=== PATIENT | male | born 1945 | race Caucasian/White ===

== ENCOUNTER 2017-08-10 21:48 | Emergency (ER) | payer OTHER ==
[~2017-08-10] VITALS: Ht 157.5 cm; Wt 112.5 kg
[~2017-08-10 21:48] MED LIST: ACYC200 PO; ACYC5TO15G TOP; ACYC800 PO; ALBIPROI INH; ALBU90OI6 INH; AMOCLA875 PO; ASPI325 PO; ASPI325EC PO; ASPI81EC PO; ATEN50; ATEN50 PO; ATOR10 PO; AZIT250 PO; Aspir-Low81 MG PO; B-122500 MCG SL; BACL10 PO; BUME1 PO; BUME2 PO; Bactrim Ds Tab1 EACH PO; CEPH500 PO; CHOL10002 PO; CLIN150 PO; CLOP75 PO; CODACE30 PO; CYCL10 PO; DIAZ5 PO; FAMO20 PO; FURO20; FURO20 PO; FURO40 PO; Fluocinolone Ac15 G1 TP; HYDACE5 PO; HYDACE5325 PO; HYDACE7.5 PO; HYDCHL25 PO; HYDR1TAB94 PO; ISOMON30 PO; LEVFLO500 PO; LISI10; LISI20 PO; LISI5 PO; LOVA20 PO; LOVA40 PO; Lovastatin20 MG PO; METO100 PO; METO100ER PO; Metoprolol Tar100 MG PO; NAPR375 PO; NAPR500 PO; NITR.4SL SL; Norco 5-325 Ta1 EACH PO; OMEP20ER PO; OMEP40CA12 PO; OXYACE5T PO; OXYC5 PO; POTA10T PO; POTCHL10ER; PRED10 PO; PROCODE120 PO; Percocet 5-3251 EACH PO; RXCODACET PO; RXHYD5325 PO; RXOXYACE PO; RXPROM25 PO; SPIR25 PO; SULTRIDS PO; TRIA80TC TOP; Vitamin B-1250 MCG PO; Vitamin D2000 UNIT PO; WARF10 PO; WARF2.5 PO; WARF3 PO; [UNRECOGNIZED DRUG - REMARK]; [UNRECOGNIZED DRUG - REMARK]; [UNRECOGNIZED DRUG - SUPPLY]
== END 2017-08-11 00:08 | disposition left against medical advice (07) ==
LOC: ER 21:48
DX: Z53.21 Procedure and treatment not carried out due to patient leaving prior to being seen by health care provider (principal)

== ENCOUNTER 2018-04-16 18:01 | Emergency (ER) | payer OTHER ==
[~2018-04-16] VITALS: Ht 157.5 cm; Wt 114.8 kg
[~2018-04-16 18:01] MED LIST changes: +AMLO10 PO; +CIPRO500 MG PO; +PANT40 PO; +WARF5 PO
[2018-04-16 20:13] LABS: BASOPHILS ABSOLUTE AUTO 0.06 K/mm3 (0.00-0.23); BASOPHILS PERCENT AUTO 1 % (0-2); EOSINOPHILS PERCENT AUTO 1 % (0-6); Hematocrit 36.8 % (37.0-53.0); Hemoglobin 12.4 g/dL (13.5-17.5); IMMATURE GRAN ABSOLUTE AUTO 0.04 K/mm3 (0.00-0.10); IMMATURE GRAN PERCENT AUTO 1 % (0-1); LYMPHOCYTES ABSOLUTE AUTO 1.71 K/mm3 (0.84-5.20); LYMPHOCYTES PERCENT AUTO 21 % (21-46); MONOCYTES ABSOLUTE AUTO 1.01 K/mm3 (0.16-1.47); MONOCYTES PERCENT AUTO 13 % (4-13); Mean Corpuscular HGB 32.5 pg (26.0-34.0); Mean Corpuscular HGB Conc 33.7 g/dL (31.5-36.5); Mean Corpuscular Volume 96 fL (80-100); Mean Platelet Volume 10.5 fL (9.1-12.4); NEUTROPHILS ABSOLUTE AUTO 5.17 K/mm3 (1.96-9.15); NEUTROPHILS PERCENT AUTO 64 % (41-73); Platelet Count 234 K/mm3 (150-400); RDW Standard Deviation 46.5 fL (35.1-46.3); Red Blood Cell Count 3.82 M/mm3 (4.30-5.90); White Blood Cell Count 8.09 K/mm3 (4.00-11.30)
[2018-04-16 20:34] LABS: Albumin, Blood 3.7 g/dL (3.4-5.0); Albumin/Globulin Ratio 0.8 (0.8-1.8); Bilirubin, Total 0.4 mg/dL (0.1-1.0); Calcium, Blood 8.7 mg/dL (8.5-10.1); Creatinine, Blood 1.62 mg/dL (0.60-1.20); Globulin, Blood 4.8 g/dL (2.2-4.0); Potassium, Blood 3.6 mmol/L (3.5-5.5); Total Protein, Blood 8.5 g/dL (6.4-8.2)
[2018-04-16] MEDS ORDERED: CEPH500 PO (22:45)
[2018-04-16 23:02] LABS: International Normalized Ratio 1.72; Prothrombin Time Results 17.4 Sec (9.7-11.5)
== END 2018-04-16 23:03 | disposition home or self-care (01) ==
LOC: ER 18:01
PROVIDERS: Emergency Medicine; Physician Assistant
DX: L03.115 Cellulitis of right lower limb (principal); R60.9 Edema, unspecified; Z88.1 Allergy status to other antibiotic agents; Z79.899 Other long term (current) drug therapy; Z79.82 Long term (current) use of aspirin; Z79.01 Long term (current) use of anticoagulants
CPT/HCPCS: 36415; 80053; 83880; 85025; 85610; 93971; 99284-25

== ENCOUNTER 2018-11-17 13:44 | Emergency (ER) | payer OTHER ==
[~2018-11-17] VITALS: Ht 157.5 cm; Wt 113.4 kg
[2018-11-17 14:27] LABS: BASOPHILS ABSOLUTE AUTO 0.04 K/mm3 (0.00-0.23); BASOPHILS PERCENT AUTO 1 % (0-2); EOSINOPHILS ABSOLUTE AUTO 0.21 K/mm3 (0.00-0.68); EOSINOPHILS PERCENT AUTO 3 % (0-6); Hematocrit 37.4 % (37.0-53.0); Hemoglobin 12.3 g/dL (13.5-17.5); IMMATURE GRAN ABSOLUTE AUTO 0.04 K/mm3 (0.00-0.10); IMMATURE GRAN PERCENT AUTO 1 % (0-1); LYMPHOCYTES ABSOLUTE AUTO 1.76 K/mm3 (0.84-5.20); LYMPHOCYTES PERCENT AUTO 29 % (21-46); MONOCYTES ABSOLUTE AUTO 0.44 K/mm3 (0.16-1.47); MONOCYTES PERCENT AUTO 7 % (4-13); Mean Corpuscular HGB 31.7 pg (26.0-34.0); Mean Corpuscular HGB Conc 32.9 g/dL (31.5-36.5); Mean Corpuscular Volume 96 fL (80-100); Mean Platelet Volume 10.9 fL (9.1-12.4); NEUTROPHILS ABSOLUTE AUTO 3.63 K/mm3 (1.96-9.15); NEUTROPHILS PERCENT AUTO 59 % (41-73); Platelet Count 185 K/mm3 (150-400); RDW Coefficient Variation 12.9 % (11.7-14.2); RDW Standard Deviation 45.8 fL (35.1-46.3); Red Blood Cell Count 3.88 M/mm3 (4.30-5.90); White Blood Cell Count 6.12 K/mm3 (4.00-11.30)
[2018-11-17 14:46] LABS: Alanine Aminotransfer (ALT/SGP 20 U/L (12-78); Albumin, Blood 3.3 g/dL (3.4-5.0); Albumin/Globulin Ratio 0.9 (0.8-1.8); Alk Phos 67 U/L (50-136); Anion Gap 3 mmol/L (6-16); Aspartate Aminotrans (AST/SGOT 17 U/L (12-37); Bilirubin, Total 0.3 mg/dL (0.1-1.0); Blood Urea Nitrogen 18 mg/dL (8-24); CO2, Blood 29 mmol/L (21-32); Calcium, Blood 8.4 mg/dL (8.5-10.1); Chloride, Blood 108 mmol/L (98-108); Creatinine, Blood 1.06 mg/dL (0.60-1.20); Globulin, Blood 3.8 g/dL (2.2-4.0); Glomerular Filtration Rate >60 (60-); Glucose, Blood 112 mg/dL (70-99); Potassium, Blood 3.9 mmol/L (3.5-5.5); Sodium, Blood 140 mmol/L (136-145); Total Protein, Blood 7.1 g/dL (6.4-8.2); Troponin I <0.015 ng/mL (0.000-0.040)
[2018-11-17] MEDS ORDERED: HYDR1TAB94 PO (15:49)
== END 2018-11-17 16:05 | disposition home or self-care (01) ==
LOC: ER 13:44
PROVIDERS: Physician Assistant
DX: M54.5 Low back pain (principal); G89.29 Other chronic pain; R07.9 Chest pain, unspecified; M25.561 Pain in right knee; Z88.1 Allergy status to other antibiotic agents; Z79.899 Other long term (current) drug therapy; Z79.82 Long term (current) use of aspirin; Z79.01 Long term (current) use of anticoagulants; I10 Essential (primary) hypertension; E78.5 Hyperlipidemia, unspecified; E11.9 Type 2 diabetes mellitus without complications
CPT/HCPCS: 29505; 36415; 80053; 84484; 85025; 93005; 93010; 99283-25; A9270-GY

== ENCOUNTER 2019-05-18 | Emergency (ER) | payer OTHER ==
[~2019-05-18] VITALS: Ht 157.5 cm; Wt 112.9 kg
== END 2019-05-18 01:25 | disposition home or self-care (01) ==
LOC: ER
DX: S81.811A Laceration without foreign body, right lower leg, initial encounter (principal); I10 Essential (primary) hypertension; E11.9 Type 2 diabetes mellitus without complications; I25.10 Atherosclerotic heart disease of native coronary artery without angina pectoris; E78.5 Hyperlipidemia, unspecified; Z23 Encounter for immunization; Z88.1 Allergy status to other antibiotic agents; Z79.899 Other long term (current) drug therapy; Z79.82 Long term (current) use of aspirin; Z79.01 Long term (current) use of anticoagulants; Z86.718 Personal history of other venous thrombosis and embolism; W22.8XXA Striking against or struck by other objects, initial encounter
CPT/HCPCS: 12002; 90471; 90714; 99282-25

== ENCOUNTER 2020-06-21 14:31 | Emergency (ER) | payer OTHER ==
[~2020-06-21] VITALS: Ht 157.5 cm; Wt 113.4 kg
[~2020-06-21 14:31] MED LIST changes: +CRUTCH4 XX
== END 2020-06-21 18:57 | disposition home or self-care (01) ==
LOC: ER 14:31
DX: M16.12 Unilateral primary osteoarthritis, left hip (principal); I10 Essential (primary) hypertension; E78.5 Hyperlipidemia, unspecified; Z79.899 Other long term (current) drug therapy; Z79.01 Long term (current) use of anticoagulants; Z88.1 Allergy status to other antibiotic agents
CPT/HCPCS: 73502; 96372; 99283-25; J1885

== ENCOUNTER 2020-11-02 12:33 | Emergency (ER) | payer OTHER ==
[~2020-11-02] VITALS: Ht 157.5 cm; Wt 117.5 kg
[2020-11-02] MEDS ORDERED: Percocet 5-3251 EACH PO (13:31)
== END 2020-11-02 13:57 | disposition home or self-care (01) ==
LOC: ER 12:33
DX: M54.12 Radiculopathy, cervical region (principal); M10.9 Gout, unspecified; E11.9 Type 2 diabetes mellitus without complications; I10 Essential (primary) hypertension; I25.10 Atherosclerotic heart disease of native coronary artery without angina pectoris; E78.5 Hyperlipidemia, unspecified; Z88.1 Allergy status to other antibiotic agents; Z79.899 Other long term (current) drug therapy; Z79.82 Long term (current) use of aspirin; Z79.01 Long term (current) use of anticoagulants; Z86.718 Personal history of other venous thrombosis and embolism
CPT/HCPCS: 99283

== ENCOUNTER 2021-08-17 11:37 | Emergency (ER) | payer OTHER ==
[~2021-08-17] VITALS: Ht 157.5 cm; Wt 114.3 kg
[2021-08-17] MEDS ORDERED: Ultram50 MG PO (13:35)
== END 2021-08-17 13:42 | disposition home or self-care (01) ==
LOC: ER 11:37
DX: M25.522 Pain in left elbow (principal); M54.50 Low back pain, unspecified; W10.9XXA Fall (on) (from) unspecified stairs and steps, initial encounter; I10 Essential (primary) hypertension; E11.9 Type 2 diabetes mellitus without complications; E78.5 Hyperlipidemia, unspecified; Z88.1 Allergy status to other antibiotic agents; Z79.899 Other long term (current) drug therapy; Z79.01 Long term (current) use of anticoagulants
CPT/HCPCS: 71046; 72100; 73080; 99283-25; A9270

== ENCOUNTER 2022-08-09 06:25 | Emergency (ER) | payer OTHER ==
[~2022-08-09] VITALS: Ht 157.5 cm; Wt 118.4 kg
[~2022-08-09 06:25] MED LIST changes: +Ultram50 MG PO
[2022-08-09 08:18] LABS: BASOPHILS ABSOLUTE AUTO 0.07 K/mm3 (0.00-0.23); BASOPHILS PERCENT AUTO 1 % (0-2); EOSINOPHILS ABSOLUTE AUTO 0.03 K/mm3 (0.00-0.68); EOSINOPHILS PERCENT AUTO 0 % (0-6); Hematocrit 34.3 % (37.0-53.0); Hemoglobin 11.7 g/dL (13.5-17.5); IMMATURE GRAN ABSOLUTE AUTO 0.08 K/mm3 (0.00-0.10); IMMATURE GRAN PERCENT AUTO 1 % (0-1); LYMPHOCYTES ABSOLUTE AUTO 0.98 K/mm3 (0.84-5.20); LYMPHOCYTES PERCENT AUTO 7 % (21-46); MONOCYTES ABSOLUTE AUTO 1.21 K/mm3 (0.16-1.47); MONOCYTES PERCENT AUTO 8 % (4-13); Mean Corpuscular HGB 32.4 pg (26.0-34.0); Mean Corpuscular HGB Conc 34.1 g/dL (31.5-36.5); Mean Corpuscular Volume 95 fL (80-100); NEUTROPHILS PERCENT AUTO 84 % (41-73); Platelet Count 192 K/mm3 (150-400); RDW Coefficient Variation 13.8 % (11.7-14.2); RDW Standard Deviation 48.5 fL (35.1-46.3); Red Blood Cell Count 3.61 M/mm3 (4.30-5.90); White Blood Cell Count 15.07 K/mm3 (4.00-11.30)
[2022-08-09 08:29] LABS: International Normalized Ratio 3.25; Prothrombin Time Results 31.9 Sec (9.7-11.5)
[2022-08-09 08:30] LABS: Bun/Creatinine Ratio 27.3 (12.0-20.0); Calcium, Blood 8.9 mg/dL (8.5-10.1); Creatinine, Blood 1.65 mg/dL (0.60-1.20); Potassium, Blood 4.3 mmol/L (3.5-5.5)
[2022-08-09] MEDS ORDERED: PRED20 PO (08:53)
[2022-08-09] MEDS ORDERED: OXYACE7.5T PO (08:53)
[2022-08-09 09:30] VITALS: BP 135/82
== END 2022-08-09 09:57 | disposition home or self-care (01) ==
LOC: ER 06:25
PROVIDERS: Emergency Medicine
DX: M10.9 Gout, unspecified (principal); D72.829 Elevated white blood cell count, unspecified; E11.9 Type 2 diabetes mellitus without complications; I10 Essential (primary) hypertension; I25.10 Atherosclerotic heart disease of native coronary artery without angina pectoris; E78.5 Hyperlipidemia, unspecified; D68.51 Activated protein C resistance; Z88.1 Allergy status to other antibiotic agents; Z79.899 Other long term (current) drug therapy; Z79.82 Long term (current) use of aspirin; Z79.01 Long term (current) use of anticoagulants
CPT/HCPCS: 80048; 85025; 85610; 85730; 93971; 96374; 96375; 99284-25; J2405; J3010

== ENCOUNTER → 2022-12-18 | Outpatient (CLI) | payer OTHER ==
[~2022-12-18] MED LIST changes: +OXYACE7.5T PO; +PRED20 PO
[2022-12-18 14:53] LABS: Protein, Urine Quantitative 46.9 mg/dL (0.0-11.9)
== END ==
LOC: LAB SHORT 12:29 → LAB 12:29
PROVIDERS: Internal Medicine Nephrology
DX: R80.9 Proteinuria, unspecified (principal)
CPT/HCPCS: 81050; 84156

== ENCOUNTER 2023-02-05 11:43 | Emergency (ER) | payer OTHER ==
[~2023-02-05] VITALS: Ht 157.5 cm; Wt 106.6 kg
[2023-02-05 12:16] VITALS: BP 139/78
[2023-02-05] MEDS ORDERED: Norco 5-325 Ta1 EACH PO (14:18)
== END 2023-02-05 14:39 | disposition home or self-care (01) ==
LOC: ER 11:43
DX: S90.32XA Contusion of left foot, initial encounter (principal); E11.9 Type 2 diabetes mellitus without complications; I25.10 Atherosclerotic heart disease of native coronary artery without angina pectoris; I10 Essential (primary) hypertension; E78.5 Hyperlipidemia, unspecified; D68.51 Activated protein C resistance; W20.8XXA Other cause of strike by thrown, projected or falling object, initial encounter; Z88.1 Allergy status to other antibiotic agents; Z79.899 Other long term (current) drug therapy; Z79.82 Long term (current) use of aspirin; Z79.01 Long term (current) use of anticoagulants; Z79.52 Long term (current) use of systemic steroids
CPT/HCPCS: 73630; 99283-25; A9270

== ENCOUNTER 2023-02-10 11:06 | Emergency (ER) | payer OTHER ==
[~2023-02-10] VITALS: Ht 157.5 cm; Wt 106.6 kg
[2023-02-10 11:09] VITALS: BP 135/82
[2023-02-10] MEDS ORDERED: TORS10 (11:25)
== END 2023-02-10 13:04 | disposition left against medical advice (07) ==
LOC: ER 11:06
DX: M79.672 Pain in left foot (principal); Z53.29 Procedure and treatment not carried out because of patient's decision for other reasons
CPT/HCPCS: 99281

== ENCOUNTER 2023-02-18 15:09 | Emergency (ER) | payer OTHER ==
[~2023-02-18] VITALS: Ht 157.5 cm; Wt 108.9 kg
[~2023-02-18 15:09] MED LIST changes: +TORS10
[2023-02-18 16:30] LABS: Influenza A, PCR NEGATIVE (NEGATIVE); Influenza B, PCR NEGATIVE (NEGATIVE); Resp Syncytial Virus, PCR NEGATIVE (NEGATIVE); SARS-Cov-2 (COVID-19) PCR, MMC NEGATIVE (NEGATIVE)
[2023-02-18 17:06] LABS: BASOPHILS ABSOLUTE AUTO 0.05 K/mm3 (0.00-0.23); BASOPHILS PERCENT AUTO 1 % (0-2); EOSINOPHILS ABSOLUTE AUTO 0.31 K/mm3 (0.00-0.68); EOSINOPHILS PERCENT AUTO 4 % (0-6); Hematocrit 35.6 % (37.0-53.0); IMMATURE GRAN ABSOLUTE AUTO 0.06 K/mm3 (0.00-0.10); IMMATURE GRAN PERCENT AUTO 1 % (0-1); LYMPHOCYTES ABSOLUTE AUTO 1.77 K/mm3 (0.84-5.20); LYMPHOCYTES PERCENT AUTO 21 % (21-46); MONOCYTES ABSOLUTE AUTO 0.66 K/mm3 (0.16-1.47); MONOCYTES PERCENT AUTO 8 % (4-13); Mean Corpuscular HGB 32.6 pg (26.0-34.0); Mean Corpuscular HGB Conc 33.7 g/dL (31.5-36.5); Mean Corpuscular Volume 97 fL (80-100); Mean Platelet Volume 10.7 fL (9.1-12.4); NEUTROPHILS ABSOLUTE AUTO 5.58 K/mm3 (1.96-9.15); NEUTROPHILS PERCENT AUTO 66 % (41-73); Platelet Count 224 K/mm3 (150-400); RDW Coefficient Variation 13.5 % (11.7-14.2); RDW Standard Deviation 47.7 fL (35.1-46.3); Red Blood Cell Count 3.68 M/mm3 (4.30-5.90); White Blood Cell Count 8.43 K/mm3 (4.00-11.30)
[2023-02-18 17:34] LABS: Albumin, Blood 3.2 g/dL (3.4-5.0); Albumin/Globulin Ratio 0.7 (0.8-1.8); Bilirubin, Total 0.3 mg/dL (0.1-1.0); Bun/Creatinine Ratio 20.9 (12.0-20.0); Calcium, Blood 8.7 mg/dL (8.5-10.1); Creatinine, Blood 1.15 mg/dL (0.60-1.20); Globulin, Blood 4.3 g/dL (2.2-4.0); Total Protein, Blood 7.5 g/dL (6.4-8.2)
[2023-02-18 18:05] VITALS: BP 156/82
== END 2023-02-18 18:08 | disposition home or self-care (01) ==
LOC: ER 15:09
PROVIDERS: Student in an Organized Health Care Education/Training Program
DX: J06.9 Acute upper respiratory infection, unspecified (principal); Z88.1 Allergy status to other antibiotic agents; Z79.899 Other long term (current) drug therapy; Z79.82 Long term (current) use of aspirin; Z79.01 Long term (current) use of anticoagulants; Z79.52 Long term (current) use of systemic steroids; E11.9 Type 2 diabetes mellitus without complications; I10 Essential (primary) hypertension; E78.5 Hyperlipidemia, unspecified
CPT/HCPCS: 0241U; 71046; 80053; 85025; 93005; 93010; 99284-25

== ENCOUNTER 2023-03-16 06:48 | Day surgery (SDC) | payer OTHER ==
[2023-03-16] VITALS (10 sets, daily range): BP systolic 124–167; BP diastolic 62–116
[~2023-03-16] VITALS: Ht 157.5 cm; Wt 108.0 kg
[~2023-03-16 06:48] MED LIST changes: +ASPIR 8181 M1 PO; -Aspir-Low81 MG PO; +CARV25 PO; +CHLO25B PO; +COLCHICINE0.6 MG PO; +FLUT.05NI; +Isosorbide Mono30 MG PO; +METF500 PO; +TAMS.4ER PO; -TORS10; +TORS10 PO
[2023-03-16] MEDS ORDERED: Verapamil HCL 2.5 MG/ML 2ML Injection ONE (07:18)
[2023-03-16] MEDS ORDERED: NS 250 ML IV ONE (07:19)
[2023-03-16] MEDS ORDERED: NS 1,000 ML IV ONE ×2 (07:19→08:31)
[2023-03-16] MEDS ORDERED: Heparin Sodium 1000 Units/ML 10ML MDV ONE (07:19)
[2023-03-16] MEDS ORDERED: ALLO300 PO (07:24)
[2023-03-16] MEDS ORDERED: ALBU90OI INH (07:25)
[2023-03-16] MEDS ORDERED: MAGNESIUM OXID500 MG PO (07:35)
[2023-03-16] MEDS ORDERED: WARF2 PO (07:38)
[2023-03-16] MEDS ORDERED: WARF4 PO (07:39)
[2023-03-16] MEDS ORDERED: Midazolam HCl 1MG / ML 2ML Vial ONE (08:31)
[2023-03-16] MEDS ORDERED: FentaNYL Citrate 50 MCG/ML 2 ML Injection ONE (08:31)
--- NOTE | 2023-03-16 09:45 | NUR ---
ASSUMED CARE OF PT POST PROCEDURE. PT AWAKE AND ORIENTED, PLEASENT AND COOPERATIVE; DENIES CHEST PAIN POST PROCEDURE. MONITOR SB 50'S, B/P 127/64, SPO2 95% RA, AFEBRILE. L RADIAL SITE NO SWELLING/HEMATOMA, TR BAND IN PLACE; LUE POSITIVE PLEUTH. R ULNAR ATTEMPT NO SWELLING/HEMATOMA, TEGADERM DRSG INTACT.
--- NOTE | 2023-03-16 10:35 | NUR ---
PT AMB TO BATHROOM, GAIT STEADY; VOIDED QS, SITES UNCHANGED WITH ACTIVITY.
--- NOTE | 2023-03-16 11:31 | NUR ---
TR BAND FULLY DEFLATED, NO SWELLING/HEMATOMA AT SITE.
--- NOTE | 2023-03-16 12:00 | NUR ---
REPORT TO KATHRIN CARCAMO; ALL QUESTIONS ANSWERED.
--- NOTE | 2023-03-16 12:45 | NUR ---
PATIENT UP AND DRESSED.
--- NOTE | 2023-03-16 12:55 | NUR ---
Tr band removed, cloth dot dressing placed, wrist borad in place. site soft and nontender, no hematoma, no bleeding. patient and family verbalized understanding of discahrge ionstructions and precautions. patient transferred via wheel chair to waiting car. daughter driving
== END 2023-03-16 12:55 | disposition home or self-care (01) ==
LOC: MHTC 06:48
DX: I25.10 Atherosclerotic heart disease of native coronary artery without angina pectoris (principal); R07.9 Chest pain, unspecified; Z88.1 Allergy status to other antibiotic agents; Z79.82 Long term (current) use of aspirin; I10 Essential (primary) hypertension; E66.01 Morbid (severe) obesity due to excess calories; Z68.41 Body mass index [BMI] 40.0-44.9, adult
CPT/HCPCS: 76937; 93454; 99152; 99153; C1769; C1894; J1644; J2250; J3010; J7030; J7050; Q9967

== ENCOUNTER 2023-06-05 07:10 | Emergency (ER) | payer OTHER ==
[~2023-06-05] VITALS: Ht 157.5 cm; Wt 98.9 kg
[~2023-06-05 07:10] MED LIST changes: +ALBU90OI INH; +ALLO300 PO; +MAGNESIUM OXID500 MG PO; +WARF2 PO; +WARF4 PO
[2023-06-05 08:13] LABS: BASOPHILS ABSOLUTE AUTO 0.04 K/mm3 (0.00-0.23); BASOPHILS PERCENT AUTO 1 % (0-2); EOSINOPHILS ABSOLUTE AUTO 0.39 K/mm3 (0.00-0.68); EOSINOPHILS PERCENT AUTO 5 % (0-6); Hematocrit 30.2 % (37.0-53.0); Hemoglobin 10.1 g/dL (13.5-17.5); IMMATURE GRAN ABSOLUTE AUTO 0.02 K/mm3 (0.00-0.10); IMMATURE GRAN PERCENT AUTO 0 % (0-1); LYMPHOCYTES ABSOLUTE AUTO 1.34 K/mm3 (0.84-5.20); LYMPHOCYTES PERCENT AUTO 16 % (21-46); MONOCYTES ABSOLUTE AUTO 0.55 K/mm3 (0.16-1.47); MONOCYTES PERCENT AUTO 7 % (4-13); Mean Corpuscular HGB 32.3 pg (26.0-34.0); Mean Corpuscular HGB Conc 33.4 g/dL (31.5-36.5); Mean Corpuscular Volume 97 fL (80-100); Mean Platelet Volume 11.6 fL (9.1-12.4); NEUTROPHILS ABSOLUTE AUTO 6.02 K/mm3 (1.96-9.15); NEUTROPHILS PERCENT AUTO 72 % (41-73); Platelet Count 153 K/mm3 (150-400); RDW Coefficient Variation 14.4 % (11.7-14.2); Red Blood Cell Count 3.13 M/mm3 (4.30-5.90); White Blood Cell Count 8.36 K/mm3 (4.00-11.30)
[2023-06-05 08:29] LABS: International Normalized Ratio 3.93
[2023-06-05 08:33] LABS: Albumin, Blood 3.5 g/dL (3.4-5.0); Albumin/Globulin Ratio 0.8 (0.8-1.8); Bilirubin, Total 0.3 mg/dL (0.1-1.0); Bun/Creatinine Ratio 32.4 (12.0-20.0); Calcium, Blood 9.2 mg/dL (8.5-10.1); Creatinine, Blood 2.59 mg/dL (0.60-1.20); Globulin, Blood 4.3 g/dL (2.2-4.0); Total Protein, Blood 7.8 g/dL (6.4-8.2)
[2023-06-05] MEDS ORDERED: NS 1,000 ML IV SCH (10:05)
[2023-06-05 12:30] VITALS: BP 105/59
== END 2023-06-05 14:00 | disposition home or self-care (01) ==
LOC: ER 07:10
PROVIDERS: Physician Assistant
DX: N17.9 Acute kidney failure, unspecified (principal); I10 Essential (primary) hypertension; E11.9 Type 2 diabetes mellitus without complications; E78.5 Hyperlipidemia, unspecified; Z79.84 Long term (current) use of oral hypoglycemic drugs; Z79.82 Long term (current) use of aspirin; Z79.01 Long term (current) use of anticoagulants; Z79.899 Other long term (current) drug therapy; Z88.1 Allergy status to other antibiotic agents
CPT/HCPCS: 71046; 76705; 80053; 83690; 84484; 85025; 85610; 93005; 93010; 96360; 96361; 99285-25; J7030

== ENCOUNTER 2023-09-27 10:28 | Emergency (ER) | payer OTHER ==
[~2023-09-27] VITALS: Ht 157.5 cm; Wt 104.3 kg
[2023-09-27 10:44] VITALS: BP 105/56
[2023-09-27 11:17] LABS: BASOPHILS ABSOLUTE AUTO 0.03 K/mm3 (0.00-0.23); BASOPHILS PERCENT AUTO 1 % (0-2); EOSINOPHILS ABSOLUTE AUTO 0.19 K/mm3 (0.00-0.68); EOSINOPHILS PERCENT AUTO 3 % (0-6); Hematocrit 33.4 % (37.0-53.0); Hemoglobin 10.9 g/dL (13.5-17.5); IMMATURE GRAN ABSOLUTE AUTO 0.02 K/mm3 (0.00-0.10); IMMATURE GRAN PERCENT AUTO 0 % (0-1); LYMPHOCYTES ABSOLUTE AUTO 1.17 K/mm3 (0.84-5.20); LYMPHOCYTES PERCENT AUTO 20 % (21-46); MONOCYTES ABSOLUTE AUTO 0.73 K/mm3 (0.16-1.47); MONOCYTES PERCENT AUTO 13 % (4-13); Mean Corpuscular HGB 33.2 pg (26.0-34.0); Mean Corpuscular HGB Conc 32.6 g/dL (31.5-36.5); Mean Corpuscular Volume 102 fL (80-100); Mean Platelet Volume 10.6 fL (9.1-12.4); NEUTROPHILS PERCENT AUTO 63 % (41-73); Platelet Count 158 K/mm3 (150-400); RDW Coefficient Variation 13.9 % (11.7-14.2); RDW Standard Deviation 52.1 fL (35.1-46.3); Red Blood Cell Count 3.28 M/mm3 (4.30-5.90); White Blood Cell Count 5.84 K/mm3 (4.00-11.30)
[2023-09-27 11:24] LABS: International Normalized Ratio 1.62; Prothrombin Time Results 16.7 Sec (9.7-11.5)
[2023-09-27 11:35] LABS: Albumin/Globulin Ratio 0.7 (0.8-1.8); Bilirubin, Total 0.5 mg/dL (0.1-1.0); Bun/Creatinine Ratio 19.4 (12.0-20.0); Calcium, Blood 8.6 mg/dL (8.5-10.1); Creatinine, Blood 1.39 mg/dL (0.60-1.20); Globulin, Blood 4.3 g/dL (2.2-4.0); Potassium, Blood 4.1 mmol/L (3.5-5.5); Total Protein, Blood 7.3 g/dL (6.4-8.2)
[2023-09-27 11:40] LABS: Influenza A, PCR NEGATIVE (NEGATIVE); Influenza B, PCR NEGATIVE (NEGATIVE); Resp Syncytial Virus, PCR NEGATIVE (NEGATIVE)
[2023-09-27 11:49] LABS: SARS-Cov-2 (COVID-19) PCR, MMC POSITIVE (NEGATIVE)
== END 2023-09-27 14:13 | disposition home or self-care (01) ==
LOC: ER 10:28
PROVIDERS: Physician Assistant
DX: U07.1 COVID-19 (principal); Z88.1 Allergy status to other antibiotic agents; Z79.51 Long term (current) use of inhaled steroids; Z79.84 Long term (current) use of oral hypoglycemic drugs; Z79.82 Long term (current) use of aspirin; Z79.01 Long term (current) use of anticoagulants; Z79.899 Other long term (current) drug therapy
CPT/HCPCS: 0241U; 71046; 80053; 85025; 85610; 99284-25

== ENCOUNTER 2024-04-30 08:35 | Day surgery (SDC) | payer OTHER ==
[~2024-04-30] VITALS: Ht 157.5 cm; Wt 102.5 kg
[~2024-04-30 08:35] MED LIST changes: +Balanced Salt Epinephrine Irrigation Solution 500 mL IR SCH; +FLONASE ALLERG9.9 M2; +Lidocaine HCl/Pf 1% 5 ML VIAL ONE; +Lidocaine HCl/Pf 1% 5 ML VIAL XX SCH; +MYLICON PO; +Moxifloxacin HCL 0.5 MG/0.1 ML 0.4MLSYR RIGHTEYE SCH; +NS 0 ML IV ONE; +NS 500 ML IV ONE; +PHENYLEPHRINE\\TROPICAMIDE\\TETRACAINE OPHTHALMIC DILATING SOLN RIGHTEYE PRN; +Povidone-Iodine 450 DROP/30 ML Solution ONE; +Povidone-Iodine 450 DROP/30 ML Solution RIGHTEYE SCH; +TORSE20 PO; +Tetracaine HCl/Pf 0.5% Opth Soln 4 ml ONE
[2024-04-30] MEDS ORDERED: NS 500 ML IV ONE (09:20)
--- NOTE | 2024-04-30 09:23 | NUR ---
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
[2024-04-30] MEDS ORDERED: Midazolam HCl 1MG / ML 2ML Vial ONE (09:57)
[2024-04-30] MEDS ORDERED: Moxifloxacin HCL 0.5 MG/0.1 ML 0.4MLSYR RIGHTEYE ONE ×2 (10:15)
--- NOTE | 2024-04-30 10:31 | NUR ---
04/30/24 1031 FRANCES THORNTON ACCORDING TO ROBERT GALLEGOS, PT DAUGHTER TOOK RING AND NECKLACE WITH HER PRIOR TO SURGERY
[2024-04-30 10:32] VITALS: BP 125/64
== END 2024-04-30 11:00 | disposition home or self-care (01) ==
LOC: ORSCSDS 08:35
PROVIDERS: Student in an Organized Health Care Education/Training Program
PROC: 08RJ3JZ Replacement of Right Lens with Synthetic Substitute, Percutaneous Approach (ICD-10-PCS; principal; 2024-04-30 10:00)
DX: E11.36 Type 2 diabetes mellitus with diabetic cataract (principal); H25.813 Combined forms of age-related cataract, bilateral; H21.81 Floppy iris syndrome; H35.89 Other specified retinal disorders; H04.123 Dry eye syndrome of bilateral lacrimal glands; I12.9 Hypertensive chronic kidney disease with stage 1 through stage 4 chronic kidney disease, or unspecified chronic kidney disease; G47.33 Obstructive sleep apnea (adult) (pediatric); E78.5 Hyperlipidemia, unspecified; E11.22 Type 2 diabetes mellitus with diabetic chronic kidney disease; N18.9 Chronic kidney disease, unspecified; I25.10 Atherosclerotic heart disease of native coronary artery without angina pectoris; K21.9 Gastro-esophageal reflux disease without esophagitis; Z86.718 Personal history of other venous thrombosis and embolism; Z79.899 Other long term (current) drug therapy
CPT/HCPCS: 82947; J2003; J2250; J7040; V2632

== ENCOUNTER 2024-10-01 12:51 | Emergency (ER) | payer OTHER ==
[~2024-10-01] VITALS: Ht 157.5 cm; Wt 98.0 kg
[~2024-10-01 12:51] MED LIST changes: -Balanced Salt Epinephrine Irrigation Solution 500 mL IR SCH; -Lidocaine HCl/Pf 1% 5 ML VIAL ONE; -Lidocaine HCl/Pf 1% 5 ML VIAL XX SCH; -Moxifloxacin HCL 0.5 MG/0.1 ML 0.4MLSYR RIGHTEYE SCH; -NS 0 ML IV ONE; -NS 500 ML IV ONE; -PHENYLEPHRINE\\TROPICAMIDE\\TETRACAINE OPHTHALMIC DILATING SOLN RIGHTEYE PRN; -Povidone-Iodine 450 DROP/30 ML Solution ONE; -Povidone-Iodine 450 DROP/30 ML Solution RIGHTEYE SCH; -Tetracaine HCl/Pf 0.5% Opth Soln 4 ml ONE
[2024-10-01 13:07] VITALS: BP 140/75
[2024-10-01] MEDS ORDERED: Ondansetron HCl 2 MG / ML 2ML Vial IV PRN (13:10)
[2024-10-01 14:26] LABS: BASOPHILS ABSOLUTE AUTO 0.02 K/mm3 (0.00-0.23); BASOPHILS PERCENT AUTO 0 % (0-2); EOSINOPHILS ABSOLUTE AUTO 0.25 K/mm3 (0.00-0.68); EOSINOPHILS PERCENT AUTO 3 % (0-6); Hematocrit 29.4 % (37.0-53.0); Hemoglobin 10.2 g/dL (13.5-17.5); IMMATURE GRAN ABSOLUTE AUTO 0.04 K/mm3 (0.00-0.10); IMMATURE GRAN PERCENT AUTO 1 % (0-1); LYMPHOCYTES ABSOLUTE AUTO 0.74 K/mm3 (0.84-5.20); LYMPHOCYTES PERCENT AUTO 9 % (21-46); MONOCYTES ABSOLUTE AUTO 0.57 K/mm3 (0.16-1.47); MONOCYTES PERCENT AUTO 7 % (4-13); Mean Corpuscular HGB Conc 34.7 g/dL (31.5-36.5); Mean Corpuscular Volume 97 fL (80-100); NEUTROPHILS ABSOLUTE AUTO 6.48 K/mm3 (1.96-9.15); NEUTROPHILS PERCENT AUTO 80 % (41-73); NRBC ABSOLUTE 0.00 K/mm3 (0.00-0.02); NRBC Auto 0.0 /100 WBC (0.0-0.2); Platelet Count 119 K/mm3 (150-400); RDW Coefficient Variation 13.3 % (11.7-14.2); RDW Standard Deviation 47.8 fL (35.1-46.3)
[2024-10-01 14:48] LABS: Alanine Aminotransfer (ALT/SGP 47.0 U/L (12-78); Albumin, Blood 2.6 g/dL (3.4-5.0); Albumin/Globulin Ratio 0.6 (0.8-1.8); Anion Gap 11.0 mmol/L (3-11); Aspartate Aminotrans (AST/SGOT 52.0 U/L (12-37); Bilirubin, Total 1.5 mg/dL (0.1-1.0); Blood Urea Nitrogen 37.0 mg/dL (8-24); CO2, Blood 19.0 mmol/L (21-32); Calcium, Blood 8.1 mg/dL (8.5-10.1); Chloride, Blood 106.0 mmol/L (98-108); Creatinine, Blood 2.29 mg/dL (0.60-1.20); Globulin, Blood 4.1 g/dL (2.2-4.0); Glucose, Blood 81.0 mg/dL (70-99); Potassium, Blood 5.8 mmol/L (3.5-5.5); Sodium, Blood 130.0 mmol/L (136-145); Total Protein, Blood 6.7 g/dL (6.4-8.2)
== END 2024-10-01 18:43 | disposition home or self-care (01) ==
LOC: ER 12:51
PROVIDERS: Physician Assistant
DX: N28.9 Disorder of kidney and ureter, unspecified (principal); E11.9 Type 2 diabetes mellitus without complications; I25.10 Atherosclerotic heart disease of native coronary artery without angina pectoris; I10 Essential (primary) hypertension; E78.5 Hyperlipidemia, unspecified; D68.51 Activated protein C resistance; Z88.1 Allergy status to other antibiotic agents; Z79.82 Long term (current) use of aspirin; Z79.01 Long term (current) use of anticoagulants; Z79.899 Other long term (current) drug therapy
CPT/HCPCS: 71046; 80053; 83690; 83880; 84484; 85025; 93005; 93010; 99284-25; A9270; J2405

== ENCOUNTER 2024-12-23 11:36 | Emergency (ER) | payer OTHER ==
[~2024-12-23] VITALS: Ht 157.5 cm; Wt 94.0 kg
[2024-12-23 12:08] LABS: BASOPHILS ABSOLUTE AUTO 0.04 K/mm3 (0.00-0.23); BASOPHILS PERCENT AUTO 1 % (0-2); EOSINOPHILS ABSOLUTE AUTO 0.22 K/mm3 (0.00-0.68); EOSINOPHILS PERCENT AUTO 3 % (0-6); Hematocrit 29.1 % (37.0-53.0); Hemoglobin 9.8 g/dL (13.5-17.5); IMMATURE GRAN ABSOLUTE AUTO 0.02 K/mm3 (0.00-0.10); IMMATURE GRAN PERCENT AUTO 0 % (0-1); LYMPHOCYTES ABSOLUTE AUTO 1.25 K/mm3 (0.84-5.20); LYMPHOCYTES PERCENT AUTO 16 % (21-46); MONOCYTES ABSOLUTE AUTO 0.96 K/mm3 (0.16-1.47); MONOCYTES PERCENT AUTO 12 % (4-13); Mean Corpuscular HGB Conc 33.7 g/dL (31.5-36.5); Mean Corpuscular Volume 99 fL (80-100); NEUTROPHILS ABSOLUTE AUTO 5.24 K/mm3 (1.96-9.15); NEUTROPHILS PERCENT AUTO 68 % (41-73); NRBC ABSOLUTE 0.00 K/mm3 (0.00-0.02); NRBC Auto 0.0 /100 WBC (0.0-0.2); Platelet Count 151 K/mm3 (150-400); RDW Coefficient Variation 13.2 % (11.7-14.2); RDW Standard Deviation 47.6 fL (35.1-46.3)
[2024-12-23 12:24] LABS: Prothrombin Time Results 31.7 Sec (9.7-11.5)
[2024-12-23 12:37] LABS: Alanine Aminotransfer (ALT/SGP 18.0 U/L (12-78); Albumin, Blood 3.0 g/dL (3.4-5.0); Albumin/Globulin Ratio 0.8 (0.8-1.8); Anion Gap 9.0 mmol/L (3-11); Aspartate Aminotrans (AST/SGOT 11.0 U/L (12-37); Bilirubin, Total 0.4 mg/dL (0.1-1.0); Blood Urea Nitrogen 60.0 mg/dL (8-24); CO2, Blood 24.0 mmol/L (21-32); Calcium, Blood 8.6 mg/dL (8.5-10.1); Chloride, Blood 108.0 mmol/L (98-108); Creatinine, Blood 2.87 mg/dL (0.60-1.20); Globulin, Blood 4.0 g/dL (2.2-4.0); Glucose, Blood 111.0 mg/dL (70-99); Potassium, Blood 5.0 mmol/L (3.5-5.5); Sodium, Blood 136.0 mmol/L (136-145); Total Protein, Blood 7.0 g/dL (6.4-8.2)
[2024-12-23] MEDS ORDERED: NS 1,000 ML IV SCH (13:00)
[2024-12-23] MEDS ORDERED: CEPH500 PO (13:16)
[2024-12-23] MEDS ORDERED: Bactrim Ds Tab1 EACH PO (13:16)
[2024-12-23 14:16] VITALS: BP 151/67
== END 2024-12-23 14:17 | disposition home or self-care (01) ==
LOC: ER 11:36
PROVIDERS: Physician Assistant
DX: L03.115 Cellulitis of right lower limb (principal); E11.9 Type 2 diabetes mellitus without complications; I25.10 Atherosclerotic heart disease of native coronary artery without angina pectoris; E78.5 Hyperlipidemia, unspecified; I10 Essential (primary) hypertension; Z88.1 Allergy status to other antibiotic agents; Z86.718 Personal history of other venous thrombosis and embolism; Z79.82 Long term (current) use of aspirin; Z79.01 Long term (current) use of anticoagulants; Z79.899 Other long term (current) drug therapy
CPT/HCPCS: 80053; 83690; 85025; 85610; 93971; 96360; 99283-25; J7030

== ENCOUNTER 2025-01-04 13:16 | Emergency (ER) | payer OTHER ==
[~2025-01-04] VITALS: Ht 152.4 cm; Wt 90.7 kg
[2025-01-04 13:47] VITALS: BP 118/94
[2025-01-04] MEDS ORDERED: CYCL10 PO (14:00)
[2025-01-04] MEDS ORDERED: LIDO700A20 TOP (14:00)
== END 2025-01-04 14:05 | disposition home or self-care (01) ==
LOC: ER 13:16
DX: G71.00 Muscular dystrophy, unspecified (principal); Z59.89 Other problems related to housing and economic circumstances; Z88.8 Allergy status to other drugs, medicaments and biological substances; Z88.1 Allergy status to other antibiotic agents; Z79.899 Other long term (current) drug therapy
CPT/HCPCS: 99282

== ENCOUNTER 2025-01-08 10:34 | Inpatient (IN) | payer OTHER ==
[~2025-01-08] VITALS: Ht 157.5 cm; Wt 95.1 kg
[~2025-01-08 10:34] MED LIST changes: +LIDO700A20 TOP
[2025-01-08 12:09] LABS: BASOPHILS ABSOLUTE AUTO 0.04 K/mm3 (0.00-0.23); BASOPHILS PERCENT AUTO 0 % (0-2); EOSINOPHILS ABSOLUTE AUTO 0.38 K/mm3 (0.00-0.68); EOSINOPHILS PERCENT AUTO 4 % (0-6); Hematocrit 29.4 % (37.0-53.0); Hemoglobin 10.0 g/dL (13.5-17.5); IMMATURE GRAN ABSOLUTE AUTO 0.02 K/mm3 (0.00-0.10); IMMATURE GRAN PERCENT AUTO 0 % (0-1); LYMPHOCYTES ABSOLUTE AUTO 1.02 K/mm3 (0.84-5.20); LYMPHOCYTES PERCENT AUTO 11 % (21-46); MONOCYTES ABSOLUTE AUTO 0.80 K/mm3 (0.16-1.47); MONOCYTES PERCENT AUTO 8 % (4-13); Mean Corpuscular HGB Conc 34.0 g/dL (31.5-36.5); Mean Corpuscular Volume 98 fL (80-100); NEUTROPHILS ABSOLUTE AUTO 7.29 K/mm3 (1.96-9.15); NEUTROPHILS PERCENT AUTO 76 % (41-73); NRBC ABSOLUTE 0.00 K/mm3 (0.00-0.02); NRBC Auto 0.0 /100 WBC (0.0-0.2); Platelet Count 184 K/mm3 (150-400); RDW Coefficient Variation 12.5 % (11.7-14.2); RDW Standard Deviation 44.8 fL (35.1-46.3)
[2025-01-08 12:52] LABS: Magnesium, Blood 2.1 mg/dL (1.6-2.4); Thyroid Stimulating Hormone 4.92 uIU/mL (0.360-4.800)
[2025-01-08 12:54] LABS: Anion Gap 11.0 mmol/L (3-11); Blood Urea Nitrogen 79.0 mg/dL (8-24); CO2, Blood 17.0 mmol/L (21-32); Calcium, Blood 8.5 mg/dL (8.5-10.1); Chloride, Blood 112.0 mmol/L (98-108); Creatinine, Blood 4.62 mg/dL (0.60-1.20); Glucose, Blood 107.0 mg/dL (70-99); Potassium, Blood 8.6 mmol/L (3.5-5.5); Sodium, Blood 131.0 mmol/L (136-145)
[2025-01-08] MEDS ORDERED: Albuterol 2.5 MG/3 ML VIAL INH SCH (13:00)
[2025-01-08] MEDS ORDERED: Calcium Gluconate 10% 100 MG/ML INJ IV ONE (13:00)
[2025-01-08] MEDS ORDERED: Insulin Regular 100 Unit/ML 1ML Dose IV ONE ×2 (13:00→17:30)
[2025-01-08 13:33] LABS: Prothrombin Time Results 65.5 Sec (9.7-11.5)
[2025-01-08] MEDS ORDERED: FLU VACC TS2025(65UP)/MF59C/PF 45 MCG/0.5 ML SYRINGE IM SCH (14:35)
[2025-01-08] MEDS ORDERED: CALCIUM GLUC IN NACL, ISO-OSM 50 ML IV ONE (14:55)
[2025-01-08] MEDS ORDERED: NS 1,000 ML IV SCH ×2 (14:55→16:25)
[2025-01-08] MEDS ORDERED: Sodium Bicarb 8.4% 1 MEQ/ML 50 ML Vial IV ONE ×3 (15:35→23:40)
[2025-01-08] MEDS ORDERED: Darbepoetin (Pharmacy Consult) SC SCH (16:30)
[2025-01-08] MEDS ORDERED: INSULIN HUMAN REGULAR IV SCH (17:20)
[2025-01-08] MEDS ORDERED: NS IV SCH (17:20)
[2025-01-08] MEDS ORDERED: Insulin Regular 100 Unit/ML 1ML Dose SC ONE (18:45)
[2025-01-08 19:51] LABS: pH Blood Venous 7.31 (7.34-7.37)
[2025-01-08] MEDS ORDERED: Heparin Sodium,Porcine 5,000 UNIT/0.5 ML SDV SC SCH (21:00)
[2025-01-08] MEDS ORDERED: Sodium Bicarb 8.4% Inj 100 MEQ in Sodium Chloride 0.45% 1,000 ML IV SCH (21:00)
[2025-01-09] VITALS (7 sets, daily range): BP systolic 120–155; BP diastolic 62–90
[2025-01-09 00:22] LABS: Source, Urine Clean Catch
[2025-01-09 00:30] LABS: Bilirubin, Urine Neg (Neg); Glucose Qualitative, Urine Neg (Neg); Ketones, Urine Neg (Neg); Leukocyte Esterase, Urine Neg (Neg); Protein, Urine 2+ (Neg); Specific Gravity, Urine 1.015 (1.003-1.022); Urobilinogen, Urine NORM (Normal)
[2025-01-09 00:47] LABS: Color, Urine Yellow (P-Yellow)
[2025-01-09 00:48] LABS: Red Blood Cells, Urine 50-100 /hpf (0-2); White Blood Cells, Urine 0-2 /hpf (0-5)
--- NOTE | 2025-01-09 02:28 | NUR ---
LATE ENTRY ASSUMPTION OF CARE. PT ARRIVED TO PCU AROUND 2049. PT STOOD AND TRANSFERED TO BED WITH SBA. PT A&O X4, CALM, COPERATIVE TO CARE. HR IN THE 80'S, SR. HE REPORTS SOME INTERMITTENT CP FOR LONG HE CAN REMEMBER BUT DENIES ANY ACTIVE CP. SpO2 RANGING FROM 90-96% ON RA, HE DENIED ANY SOB. PT STARTED BLOOD TRANSFUSION IN ER. SEE CHART FOR BLOOD TRANSFUSION DOCUMENTATION. TRANSFUSION COMPLETED AROUND 2214. VSS T/O INFUSION. PT HAS URINAL AT BEDSIDE. PT IS RESTINGIN BED AT THIS TIME. CALL LIGHT IN REACH.
[2025-01-09 03:38] LABS: Hematocrit 31.0 % (37.0-53.0); Hemoglobin 9.9 g/dL (13.5-17.5)
[2025-01-09 03:54] LABS: Magnesium, Blood 2.0 mg/dL (1.6-2.4)
[2025-01-09 04:03] LABS: Prothrombin Time Results 65.0 Sec (9.7-11.5)
[2025-01-09 04:04] LABS: Albumin, Blood 3.0 g/dL (3.4-5.0); Anion Gap 11 mmol/L (3-11); Blood Urea Nitrogen 78 mg/dL (8-24); CO2, Blood 21 mmol/L (21-32); Calcium, Blood 8.3 mg/dL (8.5-10.1); Chloride, Blood 109 mmol/L (98-108); Creatinine, Blood 4.44 mg/dL (0.60-1.20); Glucose, Blood 91 mg/dL (70-99); Phosphorus, Blood 4.3 mg/dL (2.5-4.9); Potassium, Blood 6.2 mmol/L (3.5-5.5); Sodium, Blood 135 mmol/L (136-145)
--- NOTE | 2025-01-09 06:19 | NUR ---
SHIFT SUMMARY PT A&O X4, CALM, COOPERATIVE TO CARE. HR IN THE 70'S, SR. HE DENIES ANY CP/PRESSURE, SBP STABLE. 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 PT ON RA, SpO2 >92%, HE DENIES ANY SOB. PT HAS ESPINOSA CATH IN PLACE, DRAINING YELLOW URINE. PT POTASSIUM THIS AM WAS 6.2, DR RON NOTIFIED, REPEAT LABS ORDERED FOR 1000 THIS AM. PT ON BICARB GTT AT 150. PT RESTING IN BED AT THIS TIME. CALL LIGHT IN REACH. WILL MONITOR PT AND REPORT TO ONCOMING RN.
[2025-01-09] MEDS ORDERED: CALCIUM GLUC IN NACL, ISO-OSM 50 ML IV ONE (08:35)
[2025-01-09] MEDS ORDERED: Insulin Regular 100 UNIT/ML 10ML Vial IV SCH (09:00)
[2025-01-09] MEDS ORDERED: Furosemide 10 MG / ML 2ML Vial IV ONE (09:00)
[2025-01-09] MEDS ORDERED: Albuterol 2.5 MG/3 ML VIAL INH ONE (09:00)
[2025-01-09] MEDS ORDERED: Sodium Bicarb 8.4% Inj 100 MEQ in Sodium Chloride 0.45% 1,000 ML IV SCH (09:05)
[2025-01-09] MEDS ORDERED: NS 250 ML IV PRN (09:15)
--- NOTE | 2025-01-09 10:25 | NUR ---
Called Dr Damon to explain that the serum potassium will be delayed an hour due to interventions currently in progress.
[2025-01-09 11:55] LABS: Alanine Aminotransfer (ALT/SGP 18.0 U/L (12-78); Albumin, Blood 3.2 g/dL (3.4-5.0); Albumin/Globulin Ratio 0.8 (0.8-1.8); Aspartate Aminotrans (AST/SGOT 13.0 U/L (12-37); Bilirubin, Direct 0.2 mg/dL (0.0-0.3); Bilirubin, Indirect 0.3 mg/dL (0.1-0.7); Bilirubin, Total 0.5 mg/dL (0.1-1.0); CO2, Blood 24.0 mmol/L (21-32); Globulin, Blood 3.8 g/dL (2.2-4.0); Potassium, Blood 4.8 mmol/L (3.5-5.5); Total Protein, Blood 7.0 g/dL (6.4-8.2)
[2025-01-09 12:36] LABS: Albumin, Blood 3.2 g/dL (3.4-5.0); Anion Gap 12 mmol/L (3-11); Blood Urea Nitrogen 69 mg/dL (8-24); CO2, Blood 23 mmol/L (21-32); Calcium, Blood 8.7 mg/dL (8.5-10.1); Chloride, Blood 107 mmol/L (98-108); Creatinine, Blood 3.73 mg/dL (0.60-1.20); Glucose, Blood 106 mg/dL (70-99); Phosphorus, Blood 3.1 mg/dL (2.5-4.9); Potassium, Blood 4.9 mmol/L (3.5-5.5); Sodium, Blood 137 mmol/L (136-145)
[2025-01-09 15:22] LABS: Albumin, Blood 3.1 g/dL (3.4-5.0); Anion Gap 9 mmol/L (3-11); Blood Urea Nitrogen 66 mg/dL (8-24); CO2, Blood 26 mmol/L (21-32); Calcium, Blood 8.4 mg/dL (8.5-10.1); Chloride, Blood 106 mmol/L (98-108); Creatinine, Blood 3.81 mg/dL (0.60-1.20); Glucose, Blood 115 mg/dL (70-99); Phosphorus, Blood 4.2 mg/dL (2.5-4.9); Potassium, Blood 5.4 mmol/L (3.5-5.5); Sodium, Blood 136 mmol/L (136-145)
--- NOTE | 2025-01-09 18:31 | NUR ---
shift summary- PT HAS HAD NO ACUTE CHANGE T/O THE SHIFT. TIB FIB XR COMPLETED AND RESULT IS BACK NOW. PT C/O PAIN IN THE ROGHT KNEE JUST BELOW THE KNEE CAP. ICE APPLIED FOR PT COMFORT ONCE, PT STATED THAT MADE IT BETTER FOR A LITTLE BIT. POTASSIUM WAS CRITICALLY HIGH ON ADMIT, WAS STILL HIGH THIS AM. LAST LAB CHECK DOWN TO 4.8. PT IS CURRENTLY IN BED, CALL LIGHT IN REACH NO S&S OF DISTRESS NOTED.
[2025-01-10 03:49] VITALS: BP 119/62
[2025-01-10 05:16] LABS: Hematocrit 27.2 % (37.0-53.0); Hemoglobin 9.2 g/dL (13.5-17.5)
[2025-01-10 05:25] LABS: Prothrombin Time Results 21.4 Sec (9.7-11.5)
[2025-01-10 05:45] LABS: Albumin, Blood 3.1 g/dL (3.4-5.0); Anion Gap 8 mmol/L (3-11); Blood Urea Nitrogen 56 mg/dL (8-24); CO2, Blood 26 mmol/L (21-32); Calcium, Blood 8.1 mg/dL (8.5-10.1); Chloride, Blood 105 mmol/L (98-108); Creatinine, Blood 2.89 mg/dL (0.60-1.20); Glucose, Blood 111 mg/dL (70-99); Magnesium, Blood 1.6 mg/dL (1.6-2.4); Phosphorus, Blood 3.6 mg/dL (2.5-4.9); Potassium, Blood 5.2 mmol/L (3.5-5.5); Sodium, Blood 134 mmol/L (136-145)
--- NOTE | 2025-01-10 05:53 | NUR ---
SHIFT SUMMARY PATIENT IS A/O X 4, COOPERATIVE WITH CARE AND USES CALL LIGHT APPROPRIATELY. SINUS RHYTHM HR 80-90s, SBP 110-130s. DENIES CHEST PAIN OR PRESSURE. SATS MAINTAINED >95% ON ROOM AIR. PATIENT USES OWN CPAP AT NIGHT. ESPINOSA CATH IS PATENT AND DRAINING YELLOW URINE TO GRAVITY. PATIENT IS BEDREST, BEDSIDE COMMODE FOR BOWEL MOVEMENTS. LEFT SHOULDER PAIN WITH AND RIGHT LEG PAIN WITH MOVEMENT SINCE FALL, IMPROVES WITH REPOSITIONING. NO ACUTE EVENTS THIS SHIFT. PATIENT RESTING COMFORTABLY IN ROOM. BED LOCKED IN LOWEST POSITION, CALL LIGHT WITHIN REACH
[2025-01-10 06:06] VITALS: BP 150/64
[2025-01-10 09:40] VITALS: BP 139/72
[2025-01-10 12:20] VITALS: BP 134/59
[2025-01-10 14:03] LABS: MYOGLOBIN SERUM 179 ng/mL (<=72)
[2025-01-10] MEDS ORDERED: Darbepoetin Alfa In Albumn Sol 40 MCG/0.4 ML SC ONE (16:00)
[2025-01-10 16:59] VITALS: BP 135/60
--- NOTE | 2025-01-10 17:52 | NUR ---
SHIFT SUMMARY / TRANSFER TO 303 PT A&Ox4, CALLS AND COMMUNICATES NEEDS APPROPRIATELY. BP STABLE, SINUS 80'S, DENIES CP/PRESSURE. Sp02> 92% RA, DENIES SOB. 1 ASSIST TO BSC, CONTINENT OF BOWEL. ESPINOSA CATH IN PLACE, PATENT AND DRAINING TO GRAVITY. C/O MILD PAIN IN RLE, DENIED NEED OF PAIN MEDICATION, MANGED WITH REPOSITIONING. REPORT GIVEN TO MEDICAL FLOOR RN, ALL PT BELONINGS GATHERED, PT TRANSFERED VIA HOSPITAL BED AT APPROPXIMATELY 1800. FAMILY MADE AWARE OF TRANSFER.
--- NOTE | 2025-01-10 18:36 | NUR ---
ASSUMED CARE OF TRANSFER. PT ARRIVED ON THE FLOOR AT 1745 A/O VSS PLEASENT AND COOPERATIVE WITH CARE. RIGHT LEG PROPED UP ON PILLOWS AND HAS 2PLUS EDEMA TO RIGHT LOWER EXT. MINIMAL PAIN. CALL LIGHT WITHIN REACH , MAKES NEEDS KNOWN
[2025-01-10 19:41] VITALS: BP 140/63
[2025-01-11] MEDS ORDERED: FentaNYL Citrate 50 MCG/ML 2 ML Injection IV PRN (02:55)
[2025-01-11 03:45] VITALS: BP 138/55
[2025-01-11 04:58] LABS: Hematocrit 26.1 % (37.0-53.0); Hemoglobin 8.9 g/dL (13.5-17.5)
[2025-01-11 05:12] LABS: Prothrombin Time Results 14.4 Sec (9.7-11.5)
[2025-01-11 05:40] LABS: Albumin, Blood 2.7 g/dL (3.4-5.0); Anion Gap 11 mmol/L (3-11); Blood Urea Nitrogen 50 mg/dL (8-24); CO2, Blood 23 mmol/L (21-32); Calcium, Blood 8.1 mg/dL (8.5-10.1); Chloride, Blood 103 mmol/L (98-108); Creatinine, Blood 2.56 mg/dL (0.60-1.20); Glucose, Blood 104 mg/dL (70-99); Magnesium, Blood 1.4 mg/dL (1.6-2.4); Phosphorus, Blood 3.5 mg/dL (2.5-4.9); Potassium, Blood 4.1 mmol/L (3.5-5.5); Sodium, Blood 133 mmol/L (136-145)
[2025-01-11 07:16] VITALS: BP 144/69
[2025-01-11] MEDS ORDERED: Mag Sulfate 1 GM/D5% 100ML 100 ML IV STA (08:01)
[2025-01-11 11:34] VITALS: BP 183/69
[2025-01-11 12:50] LABS: BASOPHILS ABSOLUTE AUTO 0.03 K/mm3 (0.00-0.23); BASOPHILS PERCENT AUTO 0 % (0-2); EOSINOPHILS ABSOLUTE AUTO 0.04 K/mm3 (0.00-0.68); EOSINOPHILS PERCENT AUTO 0 % (0-6); Hematocrit 30.1 % (37.0-53.0); Hemoglobin 10.4 g/dL (13.5-17.5); IMMATURE GRAN ABSOLUTE AUTO 0.06 K/mm3 (0.00-0.10); IMMATURE GRAN PERCENT AUTO 1 % (0-1); LYMPHOCYTES ABSOLUTE AUTO 1.45 K/mm3 (0.84-5.20); LYMPHOCYTES PERCENT AUTO 12 % (21-46); MONOCYTES ABSOLUTE AUTO 1.89 K/mm3 (0.16-1.47); MONOCYTES PERCENT AUTO 15 % (4-13); Mean Corpuscular HGB Conc 34.6 g/dL (31.5-36.5); Mean Corpuscular Volume 98 fL (80-100); NEUTROPHILS ABSOLUTE AUTO 8.77 K/mm3 (1.96-9.15); NEUTROPHILS PERCENT AUTO 72 % (41-73); NRBC ABSOLUTE 0.00 K/mm3 (0.00-0.02); NRBC Auto 0.0 /100 WBC (0.0-0.2); Platelet Count 159 K/mm3 (150-400); RDW Coefficient Variation 12.4 % (11.7-14.2); RDW Standard Deviation 44.7 fL (35.1-46.3)
[2025-01-11] MEDS ORDERED: Lidocaine 4% 1 Patch TOP SCH (14:00)
[2025-01-11 15:29] LABS: Source, Urine Clean Catch
[2025-01-11 15:31] VITALS: BP 145/67
[2025-01-11 15:34] LABS: Bilirubin, Urine Neg (Neg); Color, Urine Yellow (P-Yellow); Glucose Qualitative, Urine Neg (Neg); Ketones, Urine Neg (Neg); Leukocyte Esterase, Urine 1+ (Neg); Protein, Urine 2+ (Neg); Specific Gravity, Urine 1.010 (1.003-1.022); Urobilinogen, Urine 3+ (Normal)
[2025-01-11 16:19] LABS: CK TOTAL 61 U/L (39-308); CK-BB 0 % (0-0); CK-MACRO TYPE I 0 % (0-0); CK-MACRO TYPE II 0 % (0-0); CK-MB 0 % (0-4); CK-MM 100 % (96-100)
--- NOTE | 2025-01-11 18:15 | NUR ---
NOTE PT ALERT AND OREINTED. UP IN CHAIR AT BEDSIDE FOR THE AFTERNOON. IV LR ALMOST DONE. VSS. PROVIDED PT WITH A FLUTTER VALVE TO ENCOURAGE PULMONARY TOILET. EATING WELL. VOIDING DARK JOSE F URINE. CARE ONGOING.
[2025-01-11 19:46] VITALS: BP 139/79
[2025-01-12 00:14] VITALS: BP 124/61
--- NOTE | 2025-01-12 04:25 | NUR ---
NO ACUTE CHANGES OVERNIGHT PT HAS RESTED BASICALLY THE ENTIRE EVENING, SOME BOUTS OF INCONTINENCE. NO FEVERS THIS EVENING. USES CALL LIGHT APPROPRIATELY.
[2025-01-12 05:00] VITALS: BP 105/45
[2025-01-12 05:00] LABS: BASOPHILS ABSOLUTE AUTO 0.03 K/mm3 (0.00-0.23); BASOPHILS PERCENT AUTO 0 % (0-2); EOSINOPHILS ABSOLUTE AUTO 0.11 K/mm3 (0.00-0.68); EOSINOPHILS PERCENT AUTO 1 % (0-6); Hematocrit 22.1 % (37.0-53.0); Hemoglobin 7.7 g/dL (13.5-17.5); IMMATURE GRAN ABSOLUTE AUTO 0.05 K/mm3 (0.00-0.10); IMMATURE GRAN PERCENT AUTO 1 % (0-1); LYMPHOCYTES ABSOLUTE AUTO 1.91 K/mm3 (0.84-5.20); LYMPHOCYTES PERCENT AUTO 21 % (21-46); MONOCYTES ABSOLUTE AUTO 1.41 K/mm3 (0.16-1.47); MONOCYTES PERCENT AUTO 16 % (4-13); Mean Corpuscular HGB Conc 34.8 g/dL (31.5-36.5); Mean Corpuscular Volume 96 fL (80-100); NEUTROPHILS ABSOLUTE AUTO 5.58 K/mm3 (1.96-9.15); NEUTROPHILS PERCENT AUTO 61 % (41-73); NRBC ABSOLUTE 0.00 K/mm3 (0.00-0.02); NRBC Auto 0.0 /100 WBC (0.0-0.2); Platelet Count 124 K/mm3 (150-400); RDW Coefficient Variation 12.3 % (11.7-14.2); RDW Standard Deviation 42.6 fL (35.1-46.3)
[2025-01-12 05:14] LABS: Prothrombin Time Results 14.0 Sec (9.7-11.5)
[2025-01-12 05:26] LABS: Albumin, Blood 2.5 g/dL (3.4-5.0); Anion Gap 9 mmol/L (3-11); Blood Urea Nitrogen 46 mg/dL (8-24); CO2, Blood 25 mmol/L (21-32); Calcium, Blood 8.0 mg/dL (8.5-10.1); Chloride, Blood 100 mmol/L (98-108); Creatinine, Blood 2.34 mg/dL (0.60-1.20); Glucose, Blood 90 mg/dL (70-99); Magnesium, Blood 1.5 mg/dL (1.6-2.4); Phosphorus, Blood 3.9 mg/dL (2.5-4.9); Potassium, Blood 3.8 mmol/L (3.5-5.5); Sodium, Blood 130 mmol/L (136-145)
[2025-01-12] MEDS ORDERED: Mag Sulfate 1 GM/D5% 100ML 100 ML IV STA (05:48)
[2025-01-12 07:42] VITALS: BP 124/59
[2025-01-12 11:01] VITALS: BP 129/68
[2025-01-12 15:22] VITALS: BP 143/56
[2025-01-12] MEDS ORDERED: Vancomycin (Pharmacy Consult) IV SCH (16:55)
[2025-01-12] MEDS ORDERED: Vancomycin HCL 2,500 MG in NS 500 ML IV ONE (17:05)
--- NOTE | 2025-01-12 18:08 | NUR ---
SHIFT SUMMARY PT A&OX4, VSS, AMB TO THE CHAIR W/ ASSIST, TOLERATING PO, VOIDING, AND DENIED PAIN. PT HAD POSITIVE BLOOD CULTURE, VANCO INFUSING PER ORDER. PT WORKED W/ PHYSICAL THERAPY AND TOLERATED IT WELL, SEE THERAPY NOTE. NO OTHER ACUTE CHANGES. CALL LIGHT WITHIN REACH AND PT ABLE TO MAKE NEEDS KNOWN.
[2025-01-12 20:18] VITALS: BP 135/68
[2025-01-13 00:26] VITALS: BP 138/58
[2025-01-13 05:00] LABS: BASOPHILS ABSOLUTE AUTO 0.02 K/mm3 (0.00-0.23); BASOPHILS PERCENT AUTO 0 % (0-2); EOSINOPHILS ABSOLUTE AUTO 0.15 K/mm3 (0.00-0.68); EOSINOPHILS PERCENT AUTO 2 % (0-6); Hematocrit 22.5 % (37.0-53.0); Hemoglobin 7.6 g/dL (13.5-17.5); IMMATURE GRAN ABSOLUTE AUTO 0.04 K/mm3 (0.00-0.10); IMMATURE GRAN PERCENT AUTO 1 % (0-1); LYMPHOCYTES ABSOLUTE AUTO 1.29 K/mm3 (0.84-5.20); LYMPHOCYTES PERCENT AUTO 19 % (21-46); MONOCYTES ABSOLUTE AUTO 0.86 K/mm3 (0.16-1.47); MONOCYTES PERCENT AUTO 13 % (4-13); Mean Corpuscular HGB Conc 33.8 g/dL (31.5-36.5); Mean Corpuscular Volume 99 fL (80-100); NEUTROPHILS ABSOLUTE AUTO 4.49 K/mm3 (1.96-9.15); NEUTROPHILS PERCENT AUTO 66 % (41-73); NRBC ABSOLUTE 0.00 K/mm3 (0.00-0.02); NRBC Auto 0.0 /100 WBC (0.0-0.2); Platelet Count 135 K/mm3 (150-400); RDW Coefficient Variation 12.3 % (11.7-14.2); RDW Standard Deviation 43.9 fL (35.1-46.3)
[2025-01-13 05:15] LABS: Prothrombin Time Results 15.7 Sec (9.7-11.5)
--- NOTE | 2025-01-13 05:58 | NUR ---
SHIFT SUMMARY PATIENT IS ALERT AND ORIENTED. PATIENT HAS HAD NO ACUTE EVENTS THIS SHIFT. VITAL SIGNS REVIEWED. PATIENT HAS BEEN COMPLIANT ON CPAP TONIGHT. PATIENT HAS NO COMPLAINTS OF SOB, NAUSEA, PAIN OR VOMITTING THIS SHIFT. BED IN LOCKED AND LOWEST POSITION. CALL LIGHT IN PLACE.
[2025-01-13 06:00] LABS: Albumin, Blood 2.2 g/dL (3.4-5.0); Anion Gap 10 mmol/L (3-11); Blood Urea Nitrogen 49 mg/dL (8-24); CO2, Blood 23 mmol/L (21-32); Calcium, Blood 7.9 mg/dL (8.5-10.1); Chloride, Blood 103 mmol/L (98-108); Creatinine, Blood 1.82 mg/dL (0.60-1.20); Glucose, Blood 100 mg/dL (70-99); Magnesium, Blood 1.9 mg/dL (1.6-2.4); Phosphorus, Blood 3.3 mg/dL (2.5-4.9); Potassium, Blood 3.4 mmol/L (3.5-5.5); Sodium, Blood 133 mmol/L (136-145); Vancomycin, Random 24.4 ug/mL
[2025-01-13 06:47] VITALS: BP 104/68
[2025-01-13 07:46] VITALS: BP 144/58
[2025-01-13] MEDS ORDERED: CefTRIAXone Sodium 1,000 MG in NS 100 ML IV SCH (09:00)
[2025-01-13 13:46] VITALS: BP 151/74
--- NOTE | 2025-01-13 16:16 | NUR ---
DISCHARGE NOTE PT D/C HOME AT 1600. PT AND PT'S DAUGHTER PROVIDED W/ VERBAL AND WRITTEN INSTRUCTIONS BY BREAK KATHRIN LEE AND REPORTED UNDERTSTANDING. PT A&OX4, VSS, AMB W/ ASSIST, TOLERATING PO, VOIDING, AND DENIED PAIN. BELONGINGS WERE RETURNED AND PT ESCOURTED OUT VIA W/C BY THIS RN.
== END 2025-01-13 16:00 | disposition home health service (06) | DRG 683 ==
LOC: ER 10:34 → PCU 14:26 → MEDS 01-10 18:03
PROVIDERS: Emergency Medicine; Internal Medicine Nephrology; ADMIT Family Medicine
DX: N17.9 Acute kidney failure, unspecified (principal); D68.51 Activated protein C resistance; M62.82 Rhabdomyolysis; E87.1 Hypo-osmolality and hyponatremia; E87.20 Acidosis, unspecified; R65.10 Systemic inflammatory response syndrome (SIRS) of non-infectious origin without acute organ dysfunction; E87.5 Hyperkalemia; M10.9 Gout, unspecified; I44.0 Atrioventricular block, first degree; G71.00 Muscular dystrophy, unspecified; I25.10 Atherosclerotic heart disease of native coronary artery without angina pectoris; Z96.641 Presence of right artificial hip joint; E78.5 Hyperlipidemia, unspecified; D63.1 Anemia in chronic kidney disease; I12.9 Hypertensive chronic kidney disease with stage 1 through stage 4 chronic kidney disease, or unspecified chronic kidney disease; E11.22 Type 2 diabetes mellitus with diabetic chronic kidney disease; M54.50 Low back pain, unspecified; N18.4 Chronic kidney disease, stage 4 (severe); N25.81 Secondary hyperparathyroidism of renal origin; M25.462 Effusion, left knee; M19.071 Primary osteoarthritis, right ankle and foot; E83.42 Hypomagnesemia; M17.11 Unilateral primary osteoarthritis, right knee; B95.2 Enterococcus as the cause of diseases classified elsewhere; B95.7 Other staphylococcus as the cause of diseases classified elsewhere; I87.8 Other specified disorders of veins; M25.461 Effusion, right knee; Z88.1 Allergy status to other antibiotic agents; Z23 Encounter for immunization; Z79.899 Other long term (current) drug therapy; Z79.82 Long term (current) use of aspirin; Z79.51 Long term (current) use of inhaled steroids; Z79.01 Long term (current) use of anticoagulants; Z79.2 Long term (current) use of antibiotics; Z86.73 Personal history of transient ischemic attack (TIA), and cerebral infarction without residual deficits; Z87.2 Personal history of diseases of the skin and subcutaneous tissue; Z86.14 Personal history of Methicillin resistant Staphylococcus aureus infection; Z87.39 Personal history of other diseases of the musculoskeletal system and connective tissue; Z98.890 Other specified postprocedural states; Z95.5 Presence of coronary angioplasty implant and graft; Z88.8 Allergy status to other drugs, medicaments and biological substances; W19.XXXA Unspecified fall, initial encounter
CPT/HCPCS: 36415; 51702; 70450; 71045; 71046; 72170; 73590; 76770; 80048; 80069; 80076; 80202; 81001; 82374; 82550; 82552; 82607; 82803; 82947; 83605; 83735; 83874; 84132; 84439; 84443; 84481; 84484; 85014; 85018; 85025; 85610; 85730; 87040; 87077; 87086; 87186; 93005; 93010; 93970; 94644; 94664; 94760; 94762; 96374-59; 96375-59; 97162; 97530; 99285-25; A9270; J0612; J0696; J0881; J1815; J1938; J3010; J3373; J3475; J7040; J7050; J7120

== ENCOUNTER → 2025-01-27 | Outpatient (CLI) | payer OTHER ==
[2025-01-27 10:22] LABS: Microalbumin, Urine Quant. 63.6 mg/L (0.000-20.000); Protein, Urine Quantitative 20.1 mg/dL (0.0-11.9)
== END | disposition home or self-care (01) ==
LOC: LAB 08:33 → LAB SHORT 08:33 → LAB FUT 01-22 13:50
PROVIDERS: Internal Medicine Nephrology
DX: N18.2 Chronic kidney disease, stage 2 (mild) (principal); D63.1 Anemia in chronic kidney disease; N25.81 Secondary hyperparathyroidism of renal origin; E55.9 Vitamin D deficiency, unspecified; E78.00 Pure hypercholesterolemia, unspecified; E27.0 Other adrenocortical overactivity; R76.9 Abnormal immunological finding in serum, unspecified; R94.5 Abnormal results of liver function studies; R94.6 Abnormal results of thyroid function studies
CPT/HCPCS: 81050; 82043; 82570; 84156

== ENCOUNTER 2025-01-28 21:35 | Emergency (ER) | payer OTHER ==
[~2025-01-28] VITALS: Ht 157.5 cm; Wt 98.0 kg
[2025-01-28 22:10] LABS: BASOPHILS ABSOLUTE AUTO 0.05 K/mm3 (0.00-0.23); BASOPHILS PERCENT AUTO 1 % (0-2); EOSINOPHILS ABSOLUTE AUTO 0.06 K/mm3 (0.00-0.68); EOSINOPHILS PERCENT AUTO 1 % (0-6); Hematocrit 26.5 % (37.0-53.0); Hemoglobin 9.0 g/dL (13.5-17.5); IMMATURE GRAN ABSOLUTE AUTO 0.08 K/mm3 (0.00-0.10); IMMATURE GRAN PERCENT AUTO 1 % (0-1); LYMPHOCYTES ABSOLUTE AUTO 2.72 K/mm3 (0.84-5.20); LYMPHOCYTES PERCENT AUTO 29 % (21-46); MONOCYTES ABSOLUTE AUTO 0.90 K/mm3 (0.16-1.47); MONOCYTES PERCENT AUTO 10 % (4-13); Mean Corpuscular HGB Conc 34.0 g/dL (31.5-36.5); Mean Corpuscular Volume 100 fL (80-100); NEUTROPHILS ABSOLUTE AUTO 5.67 K/mm3 (1.96-9.15); NEUTROPHILS PERCENT AUTO 60 % (41-73); NRBC ABSOLUTE 0.00 K/mm3 (0.00-0.02); NRBC Auto 0.0 /100 WBC (0.0-0.2); Platelet Count 296 K/mm3 (150-400); RDW Coefficient Variation 14.1 % (11.7-14.2); RDW Standard Deviation 49.0 fL (35.1-46.3)
[2025-01-28 22:32] LABS: Alanine Aminotransfer (ALT/SGP 21.0 U/L (12-78); Albumin, Blood 3.0 g/dL (3.4-5.0); Albumin/Globulin Ratio 0.8 (0.8-1.8); Anion Gap 9.0 mmol/L (3-11); Aspartate Aminotrans (AST/SGOT 18.0 U/L (12-37); Bilirubin, Total 0.2 mg/dL (0.1-1.0); Blood Urea Nitrogen 34.0 mg/dL (8-24); CO2, Blood 25.0 mmol/L (21-32); Calcium, Blood 8.3 mg/dL (8.5-10.1); Chloride, Blood 108.0 mmol/L (98-108); Creatinine, Blood 1.19 mg/dL (0.60-1.20); Globulin, Blood 3.7 g/dL (2.2-4.0); Glucose, Blood 98.0 mg/dL (70-99); Potassium, Blood 4.2 mmol/L (3.5-5.5); Sodium, Blood 138.0 mmol/L (136-145); Total Protein, Blood 6.7 g/dL (6.4-8.2)
[2025-01-29] MEDS ORDERED: HYDROcodone 5-APAP 325 TAB PO ONE (00:55)
[2025-01-29] MEDS ORDERED: RX Prepack 6 Tabs Oxycodone 5mg UD ONE (00:55)
[2025-01-29] MEDS ORDERED: HYDR1TAB94 PO (00:57)
[2025-01-29 01:06] LABS: Source, Urine Clean Catch
[2025-01-29 01:08] LABS: Bilirubin, Urine Neg (Neg); Color, Urine Yellow (P-Yellow); Glucose Qualitative, Urine Neg (Neg); Ketones, Urine Neg (Neg); Leukocyte Esterase, Urine Neg (Neg); Protein, Urine 2+ (Neg); Specific Gravity, Urine 1.015 (1.003-1.022); Urobilinogen, Urine NORM (Normal)
[2025-01-29 01:22] LABS: Red Blood Cells, Urine 0-2 /hpf (0-2); White Blood Cells, Urine 0-2 /hpf (0-5)
[2025-01-29 01:30] VITALS: BP 140/79
== END 2025-01-29 01:41 | disposition home or self-care (01) ==
LOC: ER 21:35
PROVIDERS: Student in an Organized Health Care Education/Training Program
DX: N28.1 Cyst of kidney, acquired (principal); K59.00 Constipation, unspecified; D64.9 Anemia, unspecified; I10 Essential (primary) hypertension; Z79.82 Long term (current) use of aspirin; Z79.01 Long term (current) use of anticoagulants; Z79.899 Other long term (current) drug therapy; Z88.1 Allergy status to other antibiotic agents
CPT/HCPCS: 74177; 80053; 81001; 85025; 86850; 86900; 86901; 99284-25; A9270; Q9967